=== PATIENT | male | born 1975 | race Caucasian/White ===

== ENCOUNTER 2018-09-08 16:19 | Inpatient (IN) | payer BC, OTHER ==
[2018-09-08 16:30] VITALS: TEMP 98.3; BMI 35.6
--- NOTE | 2018-09-08 16:30 | PDOC ---
Rapid Medical Evaluation Chief Complaint: Seizure Time Seen by Provider: 09/08/18 16:23 Medical Evaluation: 09/08/18 16:23 I have performed a brief in-person evaluation of this patient. The patient presents with a chief complaint of:"Alcohol seizure ~ 2 hours ago" , states fell and struck head. , drinks 3 bottles of Vodka daily, + cocaine smoking today. c/o pain to head and back. Pertinent physical exam findings: alert but slow to respond, able to recount event I have ordered the following: CbC, Cmp, Etoh, Tox screen The patient will proceed to the ED for further evaluation. 09/08/18 16:24 09/08/18 16:30 Discharge Disposition - Diagnosis Alcohol related seizure - Referrals - Patient Instructions - Post Discharge Activity
--- NOTE | 2018-09-08 16:51 | PDOC ---
History of Present Illness - General Chief Complaint: Seizure Stated Complaint: WEAKNESS AFTER RECENT SEIZURE Time Seen by Provider: 09/08/18 16:23 History Source: Patient Exam Limitations: No Limitations - History of Present Illness Initial Comments: 09/08/18 17:10 43 year old male with PMH ETOH withdrawal seizures, ETOH abuse, cocaine (smoking ) abuse, marijuana abuse, benzo abuse presented to ED for witnessed seizure with head injury. Pt reported he decreased his daily drinking from 1 pint vodka a day to 2 "twistee teas" today, which in the past has precipitated ETOH withdrawal seizures. He staed he has been staying at a hotel with friends "partying". Pt stated his seizure was witnessed by his friends who were also using ETOH and drugs, who stated he displayed entire body shaking. He stated that when he awoke from the seizure he felt generally weak, but then drank alcohol and smoked more cocaine "because I thought I needed the alcohol anyways. " Pt reported he came to the ED for fear of further seizures. Past History - Past Medical History Allergies/Adverse Reactions: Allergies Allergy/AdvReac Type Severity Reaction Status Date / Time No Known Allergies Allergy Verified 09/08/18 16:24 Home Medications: Ambulatory Orders Dextroamphetamine/Amphetamine [Adderall 10 mg Tablet] 30 mg PO DAILY 09/08/18 Gabapentin [Neurontin -] 300 mg PO TID 09/08/18 COPD: No Seizures: Yes - Suicide/Smoking/Psychosocial Hx Smoking History: Current every day smoker Have you smoked in the past 12 months: Yes Number of Cigarettes Smoked Daily: 20 Information on smoking cessation initiated: No Hx Alcohol Use: Yes Drug/Substance Use Hx: Yes (cocaine) Review of Systems - Review of Systems Able to Perform ROS?: Yes Comments:: 09/08/18 17:04 General: denied fever, chills, generalized weakness. HEENT: denied sore throat, rhinorrhea, ear pain. Heart: denied chest pain, palpitations, syncope, diaphoresis. Respiratory: denied shortness of breath, cough, sputum production, hemoptysis. Abdomen: denied abdominal pain, nausea, vomiting, diarrhea, constipation, blood in stool. : denied dysuria, increased urinary frequency, hematuria, urinary incontinence , flank pain. Back: denied back pain. Musculoskeletal: denied joint pain, muscle pain, joint swelling. Neurological: admitted to seizure. denied headache, dizziness, numbness, tingling, weakness. Skin: denied rash, laceration, abrasion. *Physical Exam - Vital Signs Last Vital Signs Temp Pulse Resp BP Pulse Ox 98.3 F 111 H 20 140/93 96 09/08/18 16:25 09/08/18 16:25 09/08/18 16:25 09/08/18 16:25 09/08/18 16:25 - Physical Exam Comments: 09/08/18 17:04 Constitutional: Well-nourished, Well-developed, appearing stated age. diaphorectic. sitting upright. HEENT: head is normocephalic, atraumatic. EOMI. PERRLA. no tongue fasciculations. Neck: supple. Full ROM. no midline C-spine tenderness to palpation. no paraspinal tenderness to palpation. Heart: tachycardic. regular rhythm. no murmurs, rubs or gallops. Lungs: clear to auscultation bilaterally. no crackles, rhonchi or wheezing. no stridor. Back: no midline T-spine tenderness to palpation. midline L-spine tenderness to palpation. Hips: tenderness to palpation of right hip. LE equal in lenght, no external rotation. Abdomen: soft, nontender. normal bowel sounds. no rebound, guarding, masses. Extremities: peripheral pulses intact. no lower extremity edema. Neurological: alert. oriented x3. CN2-12 intact. 5/5 strength all extremities. full sensation all extremities and bilateral face. tremulous to hands. Psych: awake, alert, oriented x3. follows commands. answers questions appropriately. ED Treatment Course - LABORATORY CBC & Chemistry Diagram: 09/08/18 16:10 09/08/18 16:10 Medical Decision Making - Medical Decision Making 09/08/18 17:05 43 year old male with above PMH presented to ED for witnessed seizure with fall/ head injury after decreasing daily ETOH use. Initial Vital Signs Temp Pulse Resp BP Pulse Ox 98.3 F 111 H 20 140/93 96 09/08/18 16:25 09/08/18 16:25 09/08/18 16:25 09/08/18 16:25 09/08/18 16:25 Afebrile. Tachycardic. No tachypnea. Mild hypertension. No hypoxia on room air. EKG performed at 1706: rate 96, regular rhythm, normal axis, normal intervals, no acute ST changes. Labs ordered: CBC, CMP, ETOH, salicyclate, acetaminophen, UDS, UA Imaging ordered: CT head, CT c-spine, lumbar spine XR, pelvis XR, right hip XR Medications ordered: ativan 2 mg IV once, banana bag 09/08/18 17:14 Urine Test Results Urine Color Yellow 09/08/18 17:04 Urine Appearance Clear 09/08/18 17:04 Urine pH 6.5 (5.0-8.0) 09/08/18 17:04 Ur Specific [place] 1.015 (1.010-1.035) 09/08/18 17:04 Urine Protein Negative (NEGATIVE) 09/08/18 17:04 Urine Glucose (UA) Negative (NEGATIVE) 09/08/18 17:04 Urine Ketones Negative (NEGATIVE) 09/08/18 17:04 Urine Blood Negative (NEGATIVE) 09/08/18 17:04 Urine Nitrite Negative (NEGATIVE) 09/08/18 17:04 Urine Bilirubin Negative (NEGATIVE) 09/08/18 17:04 Ur Leukocyte Esterase Negative (NEGATIVE) 09/08/18 17:04 Negative for UTI. 09/08/18 17:33 CBC WBC 10.2 K/mm3 (4.0-10.0) H 09/08/18 16:10 RBC 5.15 M/mm3 (4.00-5.60) 09/08/18 16:10 Hgb 16.4 GM/dL (11.7-16.9) 09/08/18 16:10 Hct 47.5 % (35.4-49) 09/08/18 16:10 MCV 92.4 fl (80-96) 09/08/18 16:10 MCH 31.9 pg (25.7-33.7) 09/08/18 16:10 MCHC 34.6 g/dl (32.0-35.9) 09/08/18 16:10 RDW 13.5 % (11.9-15.9) 09/08/18 16:10 Plt Count 328 K/MM3 (134-434) 09/08/18 16:10 MPV 8.4 fl (7.5-11.1) 09/08/18 16:10 Absolute Neuts (auto) 6.5 K/mm3 (1.5-8.0) 09/08/18 16:10 Neutrophils % 63.8 % (42.8-82.8) 09/08/18 16:10 Lymphocytes % 29.0 % (8-40) 09/08/18 16:10 Monocytes % 5.2 % (3.8-10.2) 09/08/18 16:10 Eosinophils % 0.9 % (0-4.5) 09/08/18 16:10 Basophils % 1.1 % (0-2.0) 09/08/18 16:10 Nucleated RBC % 0 % (0-0) 09/08/18 16:10 Mild leukocytosis. No anemia. 09/08/18 18:29 CMP Sodium 140 mmol/L (136-145) 09/08/18 16:10 Potassium 4.6 mmol/L (3.5-5.1) 09/08/18 16:10 Chloride 105 mmol/L (98-107) 09/08/18 16:10 Carbon Dioxide 27 mmol/L (21-32) 09/08/18 16:10 Anion Gap 8 MMOL/L (8-16) 09/08/18 16:10 BUN 13.2 mg/dL (7-18) 09/08/18 16:10 Creatinine 1.2 mg/dL (0.55-1.3) 09/08/18 16:10 Est GFR (CKD-EPI)AfAm 84.73 09/08/18 16:10 Est GFR (CKD-EPI)NonAf 73.10 09/08/18 16:10 Random Glucose 105 mg/dL (74-106) 09/08/18 16:10 Calcium 9.0 mg/dL (8.5-10.1) 09/08/18 16:10 Total Bilirubin 0.5 mg/dL (0.2-1) 09/08/18 16:10 AST 45 U/L (15-37) H 09/08/18 16:10 ALT 51 U/L (13-61) 09/08/18 16:10 Alkaline Phosphatase 83 U/L (45-117) 09/08/18 16:10 Total Protein 7.8 g/dl (6.4-8.2) 09/08/18 16:10 Albumin 4.2 g/dl (3.4-5.0) 09/08/18 16:10 No electrolyte abnormalities. No REENA. Mild AST elevation - consistent with ETOH abuse. ETOH 297 Salicyclate and acetaminophen undetectable. UDS positive for cocaine Medications ordered: toradol 30 mg IV once 09/08/18 18:51 CT head report: EXAM#: TYPE/EXAM: RESULT: [id number] CT/HEAD CT WITHOUT CONTRAST Cranial CT without contrast Clinical information given: seizure multiplanar imaging was performed. Intravenous contrast was not administered. No prior imaging studies are available at this facility for direct comparison. No intraparenchymal hemorrhage is seen. There is no CT evidence of acute subarachnoid hemorrhage. No extra-axial fluid collection is noted. There is no definite abnormal attenuation. No obvious mass lesion is seen on noncontrast imaging. There is no discrete infarct within the limitations of CT. The ventricles and cisterns appear unremarkable. No calvarial defect is seen. Mild to moderate mucosal thickening is seen within the left maxillary sinus. There is mild bilateral ethmoid sinus mucosal thickening. Impression: No CT evidence of acute intracranial pathology. Reported By: Alex Manjarrez MD 09/08/18 1849 09/08/18 19:02 Pelvis XR my read: no fracture or dislocation. -Pending official report Right hip XR my read: no fracture or dislocation. -Pending official report Lumbar spine my read: decreased disc height to L4/L5. no fracture. -Pending official report. CT cervical spine report: EXAM#: TYPE/EXAM: RESULT: [id number] CT/CERVICAL SPINE CT W/O CONTR Cervical spine CT without contrast Clinical information given: fall from seizure Multiplanar imaging was performed. No fracture or posttraumatic malalignment is seen. Moderate C5-C6 degenerative disc space narrowing is noted with associated spondylosis. The perivertebral soft tissues demonstrate no obvious abnormality. Impression: No fracture is seen. Reported By : Alex Manjarrez MD 09/08/18 190 [facility] was called, there are no available beds. Pt to be admitted for ETOH withdrawal, to be transferred to [facility] in the AM when beds open up. 09/08/18 20:50 [facility] called, reported there is a bed available. Pt to be transported to [facility]. IM team informed. 09/10/18 12:16 Follow up: Pelvis XR Report: EXAM#: TYPE/EXAM: RESULT: [id number] RAD/PELVIS Pelvis: Fall. Pain. A single AP view of the pelvis reveals no sign of fracture or subluxation and no sign of blastic or lytic changes. The SI joints are patent. There is a nonspecific bowel pattern. If symptoms persist, further imaging and orthopedic consultation may be of help. Impression: No acute pelvic pathology. Reported By : Reed Hartman MD 09/08/182045 Lumbar spine report: EXAM#: TYPE/EXAM: RESULT: [id number] RAD/SPINE-LUMBAR ONLY Lumbar spine 2: Fall. Pain. The AP view shows 5 lumbar-type vertebral bodies which appear intact and the SI joints and paraspinal soft tissues are unremarkable. Lateral and spot lateral view shows straightening with no sign of fracture or subluxation and no sign of blastic or lytic changes. If symptoms persist, further imaging and orthopedic consultation may be of help. Reported By : Reed Hartman MD 09/08/182046 *DC/Admit/Observation/Transfer Diagnosis at time of Disposition: Alcohol withdrawal - Discharge Dispostion Disposition: TRANSFER ACUTE CARE/OTHER HOSP Condition at time of disposition: Stable Decision to Admit order: Yes - Referrals - Patient Instructions - Post Discharge Activity
[2018-09-08] MEDS ORDERED: FOLIC ACID INJECTION - 1 MG, THIAMINE HCL 100 MG, MULTIVIT INJECTION ADULT 10 ML in SOD... IVPB ONE (17:01)
[2018-09-08 17:09] LABS: PH,URINE 6.5 (5.0-8.0); URINE APPEARANCE CLEAR; URINE BILIRUBIN NEGATIVE (NEGATIVE); URINE COLOR YELLOW; URINE GLUCOSE (UA) NEGATIVE (NEGATIVE); URINE KETONE NEGATIVE (NEGATIVE); URINE LEUK ESTERASE NEGATIVE (NEGATIVE); URINE NITRITE NEGATIVE (NEGATIVE); URINE PROTEIN NEGATIVE (NEGATIVE); URINE UROBILINOGEN 0.2 mg/dL (0.2-1.0)
[2018-09-08] MEDS ORDERED: LORazepam 2 MG/ML SDV VIAL ONE ×3 (17:12→21:22)
[2018-09-08 17:19] LABS: BASO % 1.1 % (0-2.0); EOS % 0.9 % (0-4.5); HEMATOCRIT 47.5 % (35.4-49); HEMOGLOBIN 16.4 GM/dL (11.7-16.9); MCH 31.9 pg (25.7-33.7); MCHC 34.6 g/dl (32.0-35.9); MEAN CELL VOLUME 92.4 fl (80-96); MEAN PLT VOLUME 8.4 fl (7.5-11.1); MONO % 5.2 % (3.8-10.2); NEUT % 63.8 % (42.8-82.8); PLATELET COUNT 328 K/MM3 (134-434); RBC 5.15 M/mm3 (4.00-5.60); RDW 13.5 % (11.9-15.9); WHITE BLOOD COUNT 10.2 K/mm3 (4.0-10.0)
--- NOTE | 2018-09-08 17:36 | PDOC ---
Documentation entered by Jonathan Kimble SCRIBE, acting as scribe for Stacy Álvarez DO. Stacy Álvarez DO: This documentation has been prepared by the Lamin storm Daniel, SCRIBE, under my direction and personally reviewed by me in its entirety. I confirm that the documentation accurately reflects all work, treatment, procedures, and medical decision making performed by me. Attending Attestation - Resident Resident Name: Dione Guy - ED Attending Attestation I have performed the following: I have examined & evaluated the patient, The case was reviewed & discussed with the resident, I agree w/resident's findings & plan, Exceptions are as noted - HPI HPI: 09/08/18 17:33 The patient is a 43 year old male with a past medical history of polysubstance abuse (alcohol, cocaine. Marijuana, and benzo) and alcohol withdrawal seizures here today for evaluation of witnessed seizure. The patient reports that he was at a hotel partying with friends when he had a witnessed seizure and hit his head. He reports continuing to drink and smoked cocaine after his seizure ended. Patient states that he came in today for fear of future seizures. He also endorses right sided lower back pain and right leg pain Patient denies lightheadedness. Denies fever, chills. Denies chest pain, shortness of breath. Denies nausea, vomiting, diarrhea, abdominal pain. Allergies: NKA - Physicial Exam PE: 09/08/18 17:42 Constitutional: Awake, alert, oriented. No acute distress. Head: Normocephalic. Atraumatic Eyes: PERRL. EOMI. Conjunctivae are not pale. ENT: Mucous membranes are moist and intact. Posterior pharynx without exudates or erythema. Uvula midline. No tongue fasciculations. Neck: Supple. Full ROM. No lymphadenopathy. Cardiovascular: +tachycardia. Regular rhythm. S1, S2 regular. Distal pulses are 2+ and symmetric. Pulmonary/Chest: No evidence of respiratory distress. Clear to auscultation bilaterally No wheezing, rales or rhonchi. Abdominal: Soft and non-distended. There is no tenderness. No rebound, guarding or rigidity. No organomegaly. No palpable masses. Good bowel sounds. Back: No CVA tenderness. Musculoskeletal: No c,t, or l spine tenderness. No edema. No cyanosis. No clubbing. Full range of motion in all extremities. No calf tenderness. Radial/ pedal pulses are intact and 2+ bilaterally Skin: Skin is warm and dry. No petechiae. No purpura. Neurological: +tremors of the hands. Alert and oriented to person, place, and time. Cranial nerves II-XII are grossly intact. Normal speech. Strength is grossly symmetric. No sensory deficits. Psychiatric: Good eye contact. Normal interaction, affect and behavior. - Medical Decision Making 09/08/18 17:33 I, Dr. Stacy Álvarez, DO, attest that this document has been prepared under my direction and personally reviewed by me in its entirety. I further attest, that it accurately reflects all work, treatment, procedures and medical decision -making performed by me. 09/08/18 17:33 a/p: 43yo male with hx of etoh abuse and drug use -drinking today and doing cocaine -states he normally drinks a gallon of vodka a day -states he was only drinking twisted tea - had a tonic clonic seizure per the pt - states his friends told him - states he was concerned because he wasn't drinking enough, states he went and drank more alcohol and did more cocaine -states he was in a hotel in [place] - pt states he feels tremulous and feels he may have another seizure -pt denies johnson -states he hit the back of his head - no hematoma -states his RLE hurts - but sitting in the bed with his R leg crossed to make a 4 over the Left and moving all extremities -mild tremors of the hands -no tongue fasciculations -tachy -will send labs, ua, uds -will obtain head ct -xray pelvis/hip -will give ativan for alcohol withdrawal -pt states he wants to go to detox 09/08/18 18:[address] negative will give toradol for pain 09/08/18 19:03 no acute fx seen on xrays of pelvis and lumbar spine head ct without acute findings case discussed with Dr. Cavazos - no beds available at this time resident discussed admission with the patient to start alcohol detox and he agrees jessica sofia is pmd - microblog sent to [facility] for admission for alcohol withdrawal and cocaine withdrawal 09/08/18 19:[address] Ness from [facility] who accepts pt to service Heart Score/ECG Review - ECG Intrepretation Comment:: 09/08/18 17:36 sinus at 96, nl axis, nl interval, no acute st/t wave findings
[2018-09-08 17:40] LABS: METHADONE, UR NEGATIVE ng/ml (CUTOFF=300); OPIATES, URI NEGATIVE ng/ml (CUTOFF=300); PHENCYCLIDINE,URINE NEGATIVE ng/ml (CUTOFF=25); URINE AMPHETAMINES NEGATIVE ng/ml (CUTOFF=500); URINE BARBITURATES NEGATIVE ng/ml (CUTOFF=200); URINE BENZODIAZEPINES NEGATIVE ng/ml (CUTOFF=200)
[2018-09-08 17:41] LABS: ALBUMIN 4.2 g/dl (3.4-5.0); BILIRUBIN,TOTAL 0.5 mg/dL (0.2-1); BLOOD UREA NITROGEN 13.2 mg/dL (7-18); CREATININE 1.2 mg/dL (0.55-1.3); POTASSIUM 4.6 mmol/L (3.5-5.1); TOT PROT 7.8 g/dl (6.4-8.2)
[2018-09-08 17:48] LABS: COCAINE, UR POSITIVE ng/ml (CUTOFF=300)
[2018-09-08] MEDS ORDERED: KETOROLAC TROMETHAMINE 30 MG/1 ML VIAL IVPUSH ONE (18:57)
[2018-09-08] MEDS ORDERED: KETOROLAC TROMETHAMINE 30 MG/1 ML VIAL ONE (19:00)
[2018-09-08] MEDS ORDERED: ALBUTEROL SO4 2.5/IPRATROPIUM 0.5 INH SOL 3 ML VIAL.NEB. NEB ONE (19:16)
[2018-09-08] MEDS ORDERED: ONDANSETRON 4 MG/2 ML VIAL IVPUSH ONE (19:32)
[2018-09-08] MEDS ORDERED: ONDANSETRON 4 MG/2 ML VIAL ONE (20:15)
[2018-09-08 20:20] VITALS: BP 125/70; PULSE 104
--- NOTE | 2018-09-08 20:29 | PN ---
Teaching Attending Note Name of Resident: Elia Ness ATTENDING PHYSICIAN STATEMENT I saw and evaluated the patient. I reviewed the resident's note and discussed the case with the resident. I agree with the resident's findings and plan as documented. SUBJECTIVE: Seen and examined; please refer to resident note for further historical information. PMH EtOH seizures (has been to rehab, has had DTs), EtOH abuse ( drinks 1 gallon vodka daily) with his last drink several hours prior to presentation (+ETOH level in ER). Also endorses polysubstance abuse and is positive for cocaine. He is slightly tremulous with CIWA~7 in the ER. Has gotten several doses IV ativan. ER spoke to detox and there are no beds tonight ; decision was made to detox inpatient and transfer to [facility] when bed is available. 10 sys ROS done and negative aside from HPI PMH, PSH, FH, SH reviewed Home Medications Medication Instructions Recorded Unobtainable 09/08/18 OBJECTIVE: VS, labs, imaging reviewed NAD, AAO, resting comfortably in bed NC AT EOMI PERRLA RRR s1/2 no mgr NT ND +BS CN2-12 wnl, no fnd Slight anxiousness, normal behavior ASSESSMENT AND PLAN: Patient presents for EtOH WD; he has no other complaints. He is awaiting a bed at [facility]. 1) EtOH WD -Thiamine, folate, MV -IV Ativan CIWA protocol; scheduling valium given history of severe WD's and can taper -Spoke to banquet supervisor at ; if he gets a bed tonight can DC to their services 2) Polysubstance abuse -Noted; tox screen +. Field Operations Coordinator and defer further intervention to detox Full Code
[2018-09-08] MEDS ORDERED: diazePAM 5 MG TABLET PO PRN (20:39)
--- NOTE | 2018-09-08 20:39 | HP ---
CHIEF COMPLAINT: EtOH Withdrawal Seizure PCP: Dr. Cesar Goetz HISTORY OF PRESENT ILLNESS: Pt. is a 43 y.o. M w/ PMHx. of EtOH abuse and ADHD presents to the ED for alcoholic seizure withdrawal. Pt. states that he was at a [place] drinking alcohol and freebasing cocaine when he had a seizure. Pt. states that he did bite his tongue, did fall down and hit his head. Pt. states that he usually drinks about a gallon of vodka a day but was cutting back down to two "Twisted Tea's" a day for the last day and a half. Pt. states that after the seizure he drank some more alcohol becuase he was afraid of having more seizures. Pt. states that the last major seizure he had was a few months ago under the same circumstances. Pt. has been to Detox in the past and has went to AA meetings. Pt. endorses diarrhea over the last 2 days, 4x per day of yellow watery stool without blood. Pt. denies ever vomiting blood, denies ever having an EGD. Pt. endorses headache, chills, anxiety, unsteady gait, dizziness, nausea and lower back pain. Pt. denies having any current chest pain , dysuria, polyuria, shortness of breath, cough, abdominal pain, or swelling. ER course was notable for: (1)labs, Utox, UA (2)HEad and CSPine CT, Xrays, EKG (3) Recent Travel: No PAST MEDICAL HISTORY: As above PAST SURGICAL HISTORY: Denies Social History: Smokin PPD x 25 years Alcohol: 1 Gallon of vodka/ day Drugs: Cocaine, Marijuana, Benzos, Opiates(inject, inhales and pills), Family History: Father-DM, EtOH abuse(); Mother DM Allergies No Known Allergies Allergy (Verified 09/08/18 16:24) HOME MEDICATIONS: Home Medications Medication Instructions Recorded Unobtainable 09/08/18 REVIEW OF SYSTEMS As above PHYSICAL EXAMINATION Vital Signs - 24 hr 09/08/18 09/08/18 16:25 20:20 Temperature 98.3 F Pulse Rate 111 H Pulse Rate [ 104 H Apical] Respiratory 20 20 Rate Blood Pressure 140/93 Blood Pressure 125/70 [Left Arm] O2 Sat by Pulse 96 95 Oximetry (%) GENERAL: Awake, alert, and fully oriented, in no acute distress. HEAD: R. occipital lobe tenderness EYES: Pupils equal, round and reactive to light, extraocular movements intact, sclera anicteric, conjunctiva clear. EARS, NOSE, THROAT: Ears normal, nares patent, oropharynx clear with exudates- poor hygeine? Moist mucous membranes. NECK: Normal range of motion, supple without lymphadenopathy, JVD, or masses. LUNGS: Breath sounds equal, clear to auscultation bilaterally. No wheezes, and no crackles. No accessory muscle use. HEART: Regular rate and rhythm, normal S1 and S2 without murmur ABDOMEN: Soft, nontender, not distended, normoactive bowel sounds, no guarding, no rebound, no masses. MUSCULOSKELETAL: Normal range of motion at all joints. No bony deformities or tenderness. No CVA tenderness. UPPER EXTREMITIES: 2+ radial pulses, warm, well-perfused. No cyanosis. No clubbing. No peripheral edema. LOWER EXTREMITIES: Warm, well-perfused. No calf tenderness. No peripheral edema. NEUROLOGICAL: Wide based gait, some dysmetria PSYCHIATRIC: Cooperative. Good eye contact. Appropriate mood and affect. SKIN: Warm, dry, normal turgor, no rashes or lesions noted, normal capillary refill. Laboratory Results - last 24 hr 09/08/18 09/08/18 09/08/18 16:10 16:10 16:49 WBC 10.2 H RBC 5.15 Hgb 16.4 Hct 47.5 MCV 92.4 MCH 31.9 MCHC 34.6 RDW 13.5 Plt Count 328 MPV 8.4 Absolute Neuts (auto) 6.5 Neutrophils % 63.8 Lymphocytes % 29.0 Monocytes % 5.2 Eosinophils % 0.9 Basophils % 1.1 Nucleated RBC % 0 Sodium 140 Potassium 4.6 Chloride 105 Carbon Dioxide 27 Anion Gap 8 BUN 13.2 Creatinine 1.2 Est GFR (CKD-EPI)AfAm 84.73 Est GFR (CKD-EPI)NonAf 73.10 Random Glucose 105 Calcium 9.0 Total Bilirubin 0.5 AST 45 H ALT 51 Alkaline Phosphatase 83 Total Protein 7.8 Albumin 4.2 Urine Color Urine Appearance Urine pH Ur Specific [place] Urine Protein Urine Glucose (UA) Urine Ketones Urine Blood Urine Nitrite Urine Bilirubin Urine Urobilinogen Ur Leukocyte Esterase Salicylates Opiates Screen Negative Methadone Screen Negative Acetaminophen Barbiturate Screen Negative Phencyclidine Screen Negative Ur Amphetamines Screen Negative MDMA (Ecstasy) Screen Negative Benzodiazepines Screen Negative Cocaine Screen Positive A* U Marijuana (THC) Screen Negative Alcohol, Quantitative 09/08/18 09/08/18 17:04 17:04 WBC RBC Hgb Hct MCV MCH MCHC RDW Plt Count MPV Absolute Neuts (auto) Neutrophils % Lymphocytes % Monocytes % Eosinophils % Basophils % Nucleated RBC % Sodium Potassium Chloride Carbon Dioxide Anion Gap BUN Creatinine Est GFR (CKD-EPI)AfAm Est GFR (CKD-EPI)NonAf Random Glucose Calcium Total Bilirubin AST ALT Alkaline Phosphatase Total Protein Albumin Urine Color Yellow Urine Appearance Clear Urine pH 6.5 Ur Specific [place] 1.015 Urine Protein Negative Urine Glucose (UA) Negative Urine Ketones Negative Urine Blood Negative Urine Nitrite Negative Urine Bilirubin Negative Urine Urobilinogen 0.2 Ur Leukocyte Esterase Negative Salicylates 2.2 L Opiates Screen Methadone Screen Acetaminophen < 2.0 L Barbiturate Screen Phencyclidine Screen Ur Amphetamines Screen MDMA (Ecstasy) Screen Benzodiazepines Screen Cocaine Screen U Marijuana (THC) Screen Alcohol, Quantitative 297.3 H ASSESSMENT/PLAN: Pt. is a 43 y.o. M w/ PMHx. of EtOH abuse and ADHD presents to the ED for alcoholic seizure withdrawal. Pt. states that he was [place] drinking alcohol and freebasing cocaine when he had a seizure. #EtOH Widrawal CT Head and C-Spine: No acute pathology Hip and Lumbar spine: no fractures Seizure precautions Fall Risk Precautions Thiamine Folic Acid IVF Ativan per CIWA Protocol Valium Neurochecks Zofran PRN Utox: Cocaine ad Etoh positive f/u PT INR to calculate Maddrey LFTs: only AST elevated at 45; TBili: 0.5 Orthostatics Negative Visit type - Emergency Visit Emergency Visit: Yes ED Registration Date: 09/08/18 Care time: The patient presented to the Emergency Department on the above date and was hospitalized for further evaluation of their emergent condition. - New Patient This patient is new to me today: Yes Date on this admission: 09/08/18 - Critical Care Critical Care patient: No
[2018-09-08] MEDS ORDERED: LACTATED RINGERS SOLUTION 1,000 ML IV SCH (20:45)
[2018-09-08] MEDS ORDERED: LORazepam 2 MG/ML SDV VIAL IVPUSH PRN ×2 (20:48)
[2018-09-08] MEDS ORDERED: THIAMINE HCL 200 MG/2 ML VIAL IVPB SCH (20:55)
[2018-09-08] MEDS ORDERED: LORazepam 2 MG/ML SDV VIAL IVPUSH SCH (21:00)
[2018-09-08] MEDS ORDERED: MULTIVITAMINS (DAILY MVI) TABLET (FP) PO SCH (21:00)
[2018-09-08] MEDS ORDERED: FOLIC ACID 1 MG TABLET (FP) PO SCH (21:00)
--- NOTE | 2018-09-08 21:10 | DS ---
Physical Exam: SUBJECTIVE: Patient seen and examined. No new complaints. OBJECTIVE: Vital Signs Period Temp Pulse Resp BP Sys/Henderson Pulse Ox Last 24 Hr 98.3 F 104-111 20-20 125-140/70-93 95-96 PHYSICAL EXAM Same as admission LABS Laboratory Results - last 24 hr 09/08/18 09/08/18 09/08/18 16:10 16:10 16:49 WBC 10.2 H RBC 5.15 Hgb 16.4 Hct 47.5 MCV 92.4 MCH 31.9 MCHC 34.6 RDW 13.5 Plt Count 328 MPV 8.4 Absolute Neuts (auto) 6.5 Neutrophils % 63.8 Lymphocytes % 29.0 Monocytes % 5.2 Eosinophils % 0.9 Basophils % 1.1 Nucleated RBC % 0 Sodium 140 Potassium 4.6 Chloride 105 Carbon Dioxide 27 Anion Gap 8 BUN 13.2 Creatinine 1.2 Est GFR (CKD-EPI)AfAm 84.73 Est GFR (CKD-EPI)NonAf 73.10 Random Glucose 105 Calcium 9.0 Total Bilirubin 0.5 AST 45 H ALT 51 Alkaline Phosphatase 83 Total Protein 7.8 Albumin 4.2 Urine Color Urine Appearance Urine pH Ur Specific Eure Urine Protein Urine Glucose (UA) Urine Ketones Urine Blood Urine Nitrite Urine Bilirubin Urine Urobilinogen Ur Leukocyte Esterase Salicylates Opiates Screen Negative Methadone Screen Negative Acetaminophen Barbiturate Screen Negative Phencyclidine Screen Negative Ur Amphetamines Screen Negative MDMA (Ecstasy) Screen Negative Benzodiazepines Screen Negative Cocaine Screen Positive A* U Marijuana (THC) Screen Negative Alcohol, Quantitative 09/08/18 09/08/18 17:04 17:04 WBC RBC Hgb Hct MCV MCH MCHC RDW Plt Count MPV Absolute Neuts (auto) Neutrophils % Lymphocytes % Monocytes % Eosinophils % Basophils % Nucleated RBC % Sodium Potassium Chloride Carbon Dioxide Anion Gap BUN Creatinine Est GFR (CKD-EPI)AfAm Est GFR (CKD-EPI)NonAf Random Glucose Calcium Total Bilirubin AST ALT Alkaline Phosphatase Total Protein Albumin Urine Color Yellow Urine Appearance Clear Urine pH 6.5 Ur Specific Eure 1.015 Urine Protein Negative Urine Glucose (UA) Negative Urine Ketones Negative Urine Blood Negative Urine Nitrite Negative Urine Bilirubin Negative Urine Urobilinogen 0.2 Ur Leukocyte Esterase Negative Salicylates 2.2 L Opiates Screen Methadone Screen Acetaminophen < 2.0 L Barbiturate Screen Phencyclidine Screen Ur Amphetamines Screen MDMA (Ecstasy) Screen Benzodiazepines Screen Cocaine Screen U Marijuana (THC) Screen Alcohol, Quantitative 297.3 H HOSPITAL COURSE: Date of Admission:09/08/18 Date of Discharge: 09/08/18 Bed opened up at [facility]. Pt. stable for discharge. Hospital course discussed and agreed upon with Pt. and medical staff. Minutes to complete discharge: 35 Discharge Summary Reason For Visit: JOAQUÍN Current Active Problems Alcohol withdrawal (Acute) Condition: Stable - Instructions Diet, Activity, Other Instructions: Pt. is stable to transfer to [facility] for Detox. Advised Pt. to seek Physical Therapy. Disposition: TRANSFER ACUTE CARE/OTHER HOSP - Home Medications Comprehensive Discharge Medication List: Ambulatory Orders Unobtainable 09/08/18 This patient is new to me today: Yes Date on this admission: 09/08/18 Emergency Visit: Yes ED Registration Date: 09/08/18 Care time: The patient presented to the Emergency Department on the above date and was hospitalized for further evaluation of their emergent condition. Critical Care patient: No - Discharge Referral Referred to [facility] Med P.C.: No
[2018-09-08] MEDS ORDERED: THIAMINE HCL 200 MG/2 ML VIAL ONE (21:22)
[2018-09-08] MEDS ORDERED: FOLIC ACID 1 MG TABLET (FP) ONE (21:22)
--- NOTE | 2018-09-08 21:41 | PN ---
Progress Note (short form) - Note Progress Note: DC Summary Seen and examined; patient has no complaints. Denies CP, abdominal pain, neuro sx or seizure activity, SOB. He is afebrile and hemodynamically stable. Spoke to nursing cutting and boning supervisor at and they accepted patient to their facility. The patient is aware and agreeable Transfer initiated; spoke to ER nursing and ER physician of record and we will write for DC For PE see patient's exam on my H and P Plan: ETOH WD ETOH abuse Polysubstance Abuse Transfer to [facility] for further detox Continue supplements, CIWA Full Code
[2018-09-08] MEDS ORDERED: ONDANSETRON 4 MG/2 ML VIAL IVPUSH PRN (22:00)
--- NOTE | 2018-09-09 11:53 | EKG ---
Test Reason : Blood Pressure : / mmHG Vent. Rate : 096 BPM Atrial Rate : 096 BPM P-R Int : 140 ms QRS Dur : 084 ms QT Int : 358 ms P-R-T Axes : 053 059 038 degrees QTc Int : 452 ms POOR DATA QUALITY, INTERPRETATION MAY BE ADVERSELY AFFECTED NORMAL SINUS RHYTHM NORMAL ECG NO PREVIOUS ECGS AVAILABLE Confirmed by MORAIMA ANDREWS MD ([id number]) on 09/09/2018 11:53:34 AM Referred By: Confirmed By:MORAIMA ANDREWS MD
== END 2018-09-08 22:04 | disposition short-term general hospital (02) | DRG 53 ==
LOC: JER 16:19 → JERBED 19:08
PROVIDERS: ADMIT Internal Medicine; ATTEND Internal Medicine
DX: G40.89 Other seizures (principal); F10.230 Alcohol dependence with withdrawal, uncomplicated; F11.10 Opioid abuse, uncomplicated; F14.10 Cocaine abuse, uncomplicated; F12.10 Cannabis abuse, uncomplicated; F13.10 Sedative, hypnotic or anxiolytic abuse, uncomplicated; F17.210 Nicotine dependence, cigarettes, uncomplicated
CPT/HCPCS: 36415; 70450-TC; 72100-TC-FY; 72125-TC; 72170-TC-FY; 73523-TC-FY; 80053; 80307; 81003; 85025; 93005; 93010; 99284-25; J7030

== ENCOUNTER 2018-09-08 22:30 | Inpatient (IN) | payer BC, OTHER ==
[2018-09-08 22:55] VITALS: BMI 33.0
--- NOTE | 2018-09-08 23:27 | HP ---
CIWA Score Nausea/Vomitin (vomiting x 4) Muscle Tremors: 4-Moderate,w/Arms Extend Anxiety: 4-Mod. Anxious/Guarded Agitation: 1-Slight > Activity Paroxysmal Sweats: 2 Orientation: 0-Oriented Tacttile Disturbances: 0-None Auditory Disturbances: 0-None Visual Disturbances: 0-None Headache: 4-Moderately Severe CIWA-Ar Total Score: 20 - Admission Criteria OASAS Guidelines: Admission for Medically Managed Detox: Requires at least one of the followin. CIWA greater than 12 2. Seizures within the past 24 hours 3. Delirium tremens within the past 24 hours 4. Hallucinations within the past 24 hours 5. Acute intervention needed for co occurring medical disorder 6. Acute intervention needed for co occurring psychiatric disorder 7. Severe withdrawal that cannot be handled at a lower level of care (continued vomiting, continued diarrhea, abnormal vital signs) requiring intravenous medication and/or fluids 8. Admission ROS [facility] Chief Complaint: Alcohol withdrawal symptoms Allergies/Adverse Reactions: Allergies Allergy/AdvReac Type Severity Reaction Status Date / Time No Known Allergies Allergy Verified 09/08/18 16:24 History of Present Illness: 43 years old male with a long history of alcohol dependence is seeking admission to detox. Patient has been in multiple detox facilities and reports insignificant period of sobriety. He was transferred from [facility] emergency room and this is his first admission to [facility] inpatient detox. Patient has history of seizures, GERD, sciatica, depression and anxiety. Exam Limitations: Intoxication - Ebola screening Have you traveled outside of the country in the last 21 days: No (N) Have you had contact with anyone from an Ebola affected area: No Do you have a fever: No - Review of Systems Constitutional: Chills, Loss of Appetite, Malaise, Changes in sleep, Weakness EENT: reports: Sinus Pressure Respiratory: reports: No Symptoms reported Cardiac: reports: No Symptoms Reported GI: reports: Diarrhea (diarrhea x 3), Poor Appetite, Vomiting, Abdominal cramping : reports: No Symptoms Reported Musculoskeletal: reports: Back Pain Integumentary: reports: Dryness, Flushing Endocrine: reports: No Symptoms Reported Hematology: reports: No Symptoms Reported Psychiatric: reports: Mood/Affect Appropiate, Orientated x3, Anxious, Depressed Other Systems: Reviewed and Negative Patient History - Patient Medical History Hx Anemia: No Hx Asthma: No Hx Chronic Obstructive Pulmonary Disease (COPD): No Hx Cancer: No Hx Cardiac Disorders: No Hx Congestive Heart Failure: No Hx Hypertension: No Hx Hypercholesterolemia: No Hx Pacemaker: No HX Cerebrovascular Accident: No Hx Seizures: Yes (Lorazepam) Hx Dementia: No Hx Diabetes: No Hx Gastrointestinal Disorders: Yes (GERD) Hx Liver Disease: No Hx Genitourinary Disorders: No Hx Sexually Transmitted Disorders: No Hx Renal Disease (ESRD): No Hx Thyroid Disease: No Hx Human Immunodeficiency Virus (HIV): No (Negative 10 years) Hx Hepatitis C: No Hx Depression: Yes (Not on medication) Hx Suicide Attempt: No (Denies suicidal ideation at this time) Hx Bipolar Disorder: No Hx Schizophrenia: No Other Medical History: Anxiety, Sciatica - Not on medication - Patient Surgical History Past Surgical History: No - PPD History Previous Implant?: Yes Documented Results: Negative w/o proof Implanted On Prior [facility] Admission?: No PPD to be Administered?: Yes - Reproductive History Patient is a Female of Child Bearing Age (11 -55 yrs old): No (male) - Smoking Cessation Smoking history: Current every day smoker Have you smoked in the past 12 months: Yes Aproximately how many cigarettes per day: 20 Hx Chewing Tobacco Use: No Initiated information on smoking cessation: Yes 'Breaking Loose' booklet given: 09/08/18 - Substances abused Alcohol Substance route: Oral Frequency: Daily Amount used: liquor- 2 quarts, beer- 2 12oz Age of first use: 13 Date of last use: 09/08/18 Cocaine Substance route: Smoking Frequency: Daily Amount used: 3 bags Age of first use: 17 Date of last use: 09/08/18 Alprazolam (Xanax) Substance route: Oral Frequency: Daily Amount used: 2mg Age of first use: 29 Date of last use: 08/25/18 Family Disease History - Family Disease History Family History: Denies Admission Physical Exam S - Vital Signs Vital Signs: Vital Signs - 24 hr 09/08/18 22:49 Temperature 96 F L Pulse Rate 119 H Respiratory 18 Rate Blood Pressure 136/68 Cleared for Admission S - Detox or Rehab [facility] Level of Care: Medically Managed Detox Regimen/Protocol: Librium Claeared for Rehab Admission: No Inpatient Rehab Admission - Rehab Decision to Admit Inpatient rehab admission?: No
[2018-09-08] MEDS ORDERED: MAGNESIUM HYDROX 2400MG/30ML ORAL SUSPENSION 30 ML CUP PO PRN (23:33)
[2018-09-08] MEDS ORDERED: MENTHOL/PHENOL 1 EACH UD MM PRN (23:33)
[2018-09-08] MEDS ORDERED: MAGNESIUM CITRATE 300 ML BOTTLE PO PRN (23:33)
[2018-09-08] MEDS ORDERED: MAG HYDROX/AL HYDROX/SIMETH 30 ML UNIT-DOSE CUP PO PRN (23:33)
[2018-09-08] MEDS ORDERED: BISMUTH SUBSALICYLATE 524 MG/30 ML UD PO PRN (23:33)
[2018-09-08] MEDS ORDERED: NICOTINE POLACRILEX 2 MG GUM BUC PRN (23:33)
[2018-09-08] MEDS ORDERED: METHOCARBAMOL 500 MG TABLET PO PRN (23:33)
[2018-09-08] MEDS ORDERED: hydrOXYzine PAMOATE 25 MG CAPSULE (FP) PO PRN (23:33)
[2018-09-08] MEDS ORDERED: ACETAMINOPHEN 325 MG TABLET (FP) PO PRN ×2 (23:33)
[2018-09-09] MEDS ORDERED: chlordiazePOXIDE HCL 25 MG CAPSULE PO PRN (00:01)
[2018-09-09] MEDS ORDERED: TUBERCULIN PPD 5 TU/0.1ML VIAL ID ONE (00:32)
[2018-09-09] MEDS: chlordiazePOXIDE HCL 25 MG CAPSULE PO SCH ×4 (05:36→22:53)
--- NOTE | 2018-09-09 10:12 | CONSULT ---
[facility] Psychiatric Consult - Data Date of interview: 09/09/18 Admission source: [facility], Jeanmarie Meeks Identifying data: Mr Cortes is a 43 years old single male, unemployed with no source of income, homeless seeking detox treatment for alcohol, cocaine and benzodiazepine Substance Abuse History: Reports history of alcohol, cocaine and xanax use. Refer to addiction counselor's summary for further information Medical History: Significant for GERD, sciatica and history of drud related seizure. Smokes cigarettes 1 ppd Psychiatric History: Reports being diagnosed with ADHD by his primary care physician 3 years ago and started on Adderall. Current Adderall script is 30 mg/ day. This is unconfirmed(external medication history non existent). Over this period he reports occasional non adherence to medication. Told jingle writer that he last took it one or two weeks ago. Denies previous psychiatric hospitalization or suicidal attemp.At present, reports feeling depressed, anxious and sleeping poorly. Physical/Sexual Abuse/Trauma History: Denies history of emotional, physical or sexual abuse as well as DV relationship. No service Additional Comment: Denies criminal history Mental Status Exam - Mental Status Exam Alert and Oriented to: Time, Place, Person Cognitive Function: Fair Patient Appearance: Well Groomed Mood: Depressed, Anxious Affect: Appropriate Patient Behavior: Cooperative Speech Pattern: Clear Voice Loudness: Normal Thought Process: Intact, Goal Oriented Thought Disorder: Not Present Hallucinations: Denies Suicidal Ideation: Denies Homicidal Ideation: Denies Insight/Judgement: Poor Sleep: Poorly Appetite: Good Muscle strength/Tone: Normal Gait/Station: Normal Psychiatric Findings - Problem List (Oliver 1, 2,3) (1) ADHD (attention deficit hyperactivity disorder) Current Visit: Yes Status: Chronic (2) Substance induced mood disorder Current Visit: Yes Status: Acute (3) Substance-induced sleep disorder Current Visit: Yes Status: Acute (4) Alcohol dependence with uncomplicated withdrawal Current Visit: Yes Status: Acute (5) Cocaine dependence Current Visit: Yes Status: Acute (6) Sedative, hypnotic or anxiolytic dependence with withdrawal, uncomplicated Current Visit: Yes Status: Acute (7) Nicotine dependence Current Visit: Yes Status: Chronic (8) Sciatica Current Visit: Yes Status: Chronic (9) Drug withdrawal seizure Current Visit: Yes Status: Resolved - Initial Treatment Plan Initial Treatment Plan: 1) Start Melatonin 5 mg po HS prn for insomnia. 2) Continue inpatient detoxication
[2018-09-09] MEDS: NICOTINE 21 MG/24 HOURS TOPICAL PATCH TD SCH (11:01)
[2018-09-09] MEDS: PRENATAL VITAMINS W/ FOLIC ACID TABLET (FP) PO SCH (11:01)
[2018-09-09] MEDS: IBUPROFEN 400 MG TABLET (FP) PO PRN (11:02)
[2018-09-09 11:50] LABS: ALBUMIN 3.4 g/dl (3.4-5.0); BILIRUBIN,TOTAL 0.7 mg/dL (0.2-1); BLOOD UREA NITROGEN 17.7 mg/dL (7-18); CALCIUM 8.4 mg/dL (8.5-10.1); CREATININE 1.3 mg/dL (0.55-1.3); POTASSIUM 4.1 mmol/L (3.5-5.1); TOT PROT 6.1 g/dl (6.4-8.2)
--- NOTE | 2018-09-09 12:52 | PN ---
S CIWA - CIWA Score Nausea/Vomitin-No Nausea/No Vomiting Muscle Tremors: 4-Moderate,w/Arms Extend Anxiety: 4-Mod. Anxious/Guarded Agitation: 4-Moderately Restless Paroxysmal Sweats: 3 Orientation: 0-Oriented Tacttile Disturbances: 0-None Auditory Disturbances: 0-None Visual Disturbances: 0-None Headache: 0-None Present CIWA-Ar Total Score: 15 BHS Progress Note (SOAP) Subjective: sweats shakes interrupted sleep body aches agitation Objective: 09/09/18 12:52 Vital Signs Temperature 97.5 F L 09/09/18 09:30 Pulse Rate 80 09/09/18 09:30 Respiratory Rate 17 09/09/18 09:30 Blood Pressure 109/64 09/09/18 09:30 O2 Sat by Pulse Oximetry (%) Laboratory Tests 09/09/18 07:00 Sodium 141 Potassium 4.1 Chloride 106 Carbon Dioxide 28 Anion Gap 7 L BUN 17.7 Creatinine 1.3 Est GFR (CKD-EPI)AfAm 76.91 Est GFR (CKD-EPI)NonAf 66.36 Random Glucose 87 Calcium 8.4 L Total Bilirubin 0.7 AST 22 ALT 40 Alkaline Phosphatase 64 Total Protein 6.1 L Albumin 3.4 rest of labs pending aaox3 ambulating no acute distress Assessment: 09/09/18 12:53 withdrawal sx Plan: continue detox increase fluids pending labs
[2018-09-09] MEDS: THIAMINE HCL 100 MG TABLET (FP) PO SCH (22:53)
[2018-09-10] MEDS: chlordiazePOXIDE HCL 25 MG CAPSULE PO SCH ×4 (05:33→22:37)
[2018-09-10] MEDS: PRENATAL VITAMINS W/ FOLIC ACID TABLET (FP) PO SCH (11:14)
[2018-09-10] MEDS: NICOTINE 21 MG/24 HOURS TOPICAL PATCH TD SCH (11:14)
[2018-09-10] MEDS: IBUPROFEN 400 MG TABLET (FP) PO PRN (11:15)
--- NOTE | 2018-09-10 11:38 | PN ---
S CIWA - CIWA Score Nausea/Vomitin-No Nausea/No Vomiting Muscle Tremors: 2 Anxiety: 2 Agitation: 1-Slight > Activity Paroxysmal Sweats: 3 Orientation: 0-Oriented Tacttile Disturbances: 0-None Auditory Disturbances: 0-None Visual Disturbances: 0-None Headache: 2-Mild CIWA-Ar Total Score: 10 S Progress Note (SOAP) Subjective: c/o sweats, headache, anxiety, and shakes. Objective: 09/10/18 11:37 Vital Signs 09/10/18 09/10/18 06:00 10:57 Temperature 97.3 F L 97.9 F Pulse Rate 66 94 H Respiratory 18 18 Rate Blood Pressure 124/73 139/89 Lab Results Sodium 141 mmol/L (136-145) 09/09/18 07:00 Potassium 4.1 mmol/L (3.5-5.1) 09/09/18 07:00 Chloride 106 mmol/L (98-107) 09/09/18 07:00 Carbon Dioxide 28 mmol/L (21-32) 09/09/18 07:00 Anion Gap 7 MMOL/L (8-16) L 09/09/18 07:00 BUN 17.7 mg/dL (7-18) 09/09/18 07:00 Creatinine 1.3 mg/dL (0.55-1.3) 09/09/18 07:00 Random Glucose 87 mg/dL (74-106) 09/09/18 07:00 Calcium 8.4 mg/dL (8.5-10.1) L 09/09/18 07:00 Labs noted Assessment: 09/10/18 11:37 AOX3, in no acute distress Full ROM, ambulating in the unit. withdrawal symptoms. Plan: continue detox.
[2018-09-10] MEDS: THIAMINE HCL 100 MG TABLET (FP) PO SCH (22:38)
[2018-09-10] MEDS: MELATONIN 5 MG TABLETS PO PRN (22:38)
[2018-09-11] MEDS ORDERED: chlordiazePOXIDE HCL 10 MG CAPSULE PO PRN (05:00)
[2018-09-11] MEDS: IBUPROFEN 400 MG TABLET (FP) PO PRN (05:58)
[2018-09-11] MEDS: chlordiazePOXIDE HCL 10 MG CAPSULE PO SCH ×4 (05:58→22:10)
[2018-09-11] MEDS: PRENATAL VITAMINS W/ FOLIC ACID TABLET (FP) PO SCH (11:05)
[2018-09-11] MEDS: NICOTINE 21 MG/24 HOURS TOPICAL PATCH TD SCH (11:05)
[2018-09-11] MEDS ORDERED: cloNIDine HCL 0.1 MG TABLET PO PRN (17:26)
--- NOTE | 2018-09-11 17:27 | PN ---
S CIWA - CIWA Score Nausea/Vomitin-Mild Nausea/No Vomiting Muscle Tremors: 2 Anxiety: 2 Agitation: 2 Paroxysmal Sweats: 2 Orientation: 0-Oriented Tacttile Disturbances: 0-None Auditory Disturbances: 0-None Visual Disturbances: 0-None Headache: 0-None Present CIWA-Ar Total Score: 9 S Progress Note (SOAP) Subjective: Sweating, tremor, headache, interrupted sleep Objective: 09/11/18 17:25 Last Vital Signs Temp Pulse Resp BP Pulse Ox 96.9 F L 83 20 135/95 09/11/18 17:13 09/11/18 17:13 09/11/18 17:13 09/11/18 17:13 Elevated b/p noted: 135/95 (denies htn, not on med) Laboratory Tests 09/09/18 09/09/18 07:00 07:00 Sodium 141 Potassium 4.1 Chloride 106 Carbon Dioxide 28 Anion Gap 7 L BUN 17.7 Creatinine 1.3 Est GFR (CKD-EPI)AfAm 76.91 Est GFR (CKD-EPI)NonAf 66.36 Random Glucose 87 Calcium 8.4 L Total Bilirubin 0.7 AST 22 ALT 40 Alkaline Phosphatase 64 Total Protein 6.1 L Albumin 3.4 RPR Titer Nonreactive Labs reviewed Assessment: 09/11/18 17:27 Withdrawal symptoms Noted with elevated b/p Plan: Continue detox Encouraged PO water intake Elevated b/p: could be r/t withdrawal; start clonidine 0.1mg PO q8hr prn if b/p > 140/90, follow up with PCP for management
[2018-09-11] MEDS: THIAMINE HCL 100 MG TABLET (FP) PO SCH (22:09)
[2018-09-11] MEDS: MELATONIN 5 MG TABLETS PO PRN (22:11)
--- NOTE | 2018-09-12 00:10 | EKG ---
Test Reason : Blood Pressure : / mmHG Vent. Rate : 099 BPM Atrial Rate : 099 BPM P-R Int : 140 ms QRS Dur : 086 ms QT Int : 370 ms P-R-T Axes : 062 066 051 degrees QTc Int : 474 ms NORMAL SINUS RHYTHM NONSPECIFIC T WAVE ABNORMALITY PROLONGED QT ABNORMAL ECG WHEN COMPARED WITH ECG OF 08-SEP-2018 17:06, NO SIGNIFICANT CHANGE WAS FOUND Confirmed by MD Zoraida, Beto ([id number]) on 09/12/2018 12:10:23 AM Referred By: Bernadette Barroso Confirmed By:Beto Conway MD
[2018-09-12] MEDS ORDERED: chlordiazePOXIDE HCL 10 MG CAPSULE PO SCH (05:00)
[2018-09-12] MEDS: IBUPROFEN 400 MG TABLET (FP) PO PRN (05:32)
[2018-09-12] MEDS: PRENATAL VITAMINS W/ FOLIC ACID TABLET (FP) PO SCH (10:17)
[2018-09-12] MEDS: NICOTINE 21 MG/24 HOURS TOPICAL PATCH TD SCH (10:17)
[2018-09-12] MEDS: chlordiazePOXIDE HCL 25 MG CAPSULE PO PRN ×2 (11:23→14:51)
[2018-09-12 13:09] VITALS: BP 125/73; PULSE 100; TEMP 98.1
--- NOTE | 2018-09-12 13:30 | PN ---
S CIWA - CIWA Score Nausea/Vomitin-No Nausea/No Vomiting Muscle Tremors: 2 Anxiety: 1-Mildly Anxious Agitation: 1-Slight > Activity Paroxysmal Sweats: 1-Minimal Palms Moist Orientation: 0-Oriented Tacttile Disturbances: 0-None Auditory Disturbances: 0-None Visual Disturbances: 0-None Headache: 0-None Present CIWA-Ar Total Score: 5 BHS Progress Note (SOAP) Subjective: sweats shakes Objective: 09/12/18 13:29 Vital Signs Temperature 98.1 F 09/12/18 13:09 Pulse Rate 100 H 09/12/18 13:09 Respiratory Rate 17 09/12/18 13:09 Blood Pressure 125/73 09/12/18 13:09 O2 Sat by Pulse Oximetry (%) aaox3 ambulating no acute distress Assessment: 09/12/18 13:29 mild withdrawal sx Plan: continue detox increase fluids librium prn ordered d/c in am
--- NOTE | 2018-09-12 15:22 | PN ---
[facility] Progress Note Note: pt admitted in withdrawals, pt c/o of withdrawals and aggressive management of his s/s were attempted however in spite of motivational counseling and risk of seizures, DT's and or loss, pt signed out AMA.
--- NOTE | 2018-09-13 11:20 | DS ---
[facility] Detox Discharge Summary Admission Date: 09/08/18 - History Present History: Alcohol Dependence, Cocaine Dependence, Sedative Dependence - Physical Exam Results Vital Signs: Vital Signs Temperature 98.1 F 09/12/18 13:09 Pulse Rate 100 H 09/12/18 13:09 Respiratory Rate 17 09/12/18 13:09 Blood Pressure 125/73 09/12/18 13:09 O2 Sat by Pulse Oximetry (%) - Treatment Hospital Course: Discharged Condition Good - Medication Discharge Medications: Ambulatory Orders Dextroamphetamine/Amphetamine [Adderall 10 mg Tablet] 30 mg PO DAILY 09/08/18 Gabapentin [Neurontin -] 300 mg PO TID 09/08/18 - Diagnosis (1) Alcohol dependence with uncomplicated withdrawal Status: Chronic (2) Cocaine dependence Status: Chronic Qualifiers: Substance use status: uncomplicated Qualified Code(s): F14.20 - Cocaine dependence, uncomplicated (3) Sedative, hypnotic or anxiolytic dependence with withdrawal, uncomplicated Status: Chronic (4) Substance induced mood disorder Status: Acute (5) Substance-induced sleep disorder Status: Acute (6) ADHD (attention deficit hyperactivity disorder) Status: Chronic (7) Nicotine dependence Status: Chronic Qualifiers: Nicotine product type: cigarettes Substance use status: uncomplicated Qualified Code(s): F17.210 - Nicotine dependence, cigarettes, uncomplicated (8) Sciatica Status: Chronic (9) Drug withdrawal seizure Status: Resolved - AMA Did Patient Leave Against Medical Advice: Yes (refused inpatient rehab and aftercare referral;going home)
== END 2018-09-12 15:42 | disposition left against medical advice (07) | DRG 770 ==
LOC: YASAS 22:30 → Y6N 23:17
PROVIDERS: ADMIT Surgery; ATTEND Surgery
PROC: HZ2ZZZZ Detoxification Services for Substance Abuse Treatment (ICD-10-PCS; principal; 2018-09-08)
DX: F10.230 Alcohol dependence with withdrawal, uncomplicated (principal); F13.230 Sedative, hypnotic or anxiolytic dependence with withdrawal, uncomplicated; F14.20 Cocaine dependence, uncomplicated; F17.210 Nicotine dependence, cigarettes, uncomplicated; F19.24 Other psychoactive substance dependence with psychoactive substance-induced mood disorder; F19.282 Other psychoactive substance dependence with psychoactive substance-induced sleep disorder; F41.9 Anxiety disorder, unspecified; F32.9 Major depressive disorder, single episode, unspecified; F90.9 Attention-deficit hyperactivity disorder, unspecified type; M54.30 Sciatica, unspecified side; G40.509 Epileptic seizures related to external causes, not intractable, without status epilepticus
CPT/HCPCS: 36415; 80053; 86593; 93005; 93010